=== PATIENT | male | born 1990 | race Caucasian/White ===

== ENCOUNTER 2016-12-25 21:08 | Emergency (ER) | payer SELFPAY ==
[~2016-12-25] VITALS: Ht 175.3 cm; Wt 80.2 kg
[~2016-12-25 21:08] MED LIST: NO ROUTINE MEDS
--- OUTSIDE RECORDS SUMMARY | 2016-12-25 21:12 | XMS REPORT | Continuity of Care Document ---
Author Author [facility] Organization [facility] Address Unknown Phone Unavailable Allergies Active Description Code Type Severity Reaction Onset Reported/Identified Relationship to Patient Clinical Status Yes No Known Medication Allergies NKMA N/A N/A 08/28/2014 Medications Problems Procedures Results Test Result Range Comprehensive Metabolic Panel (CMP) - 07/05/16 11:25 Albumin 4.5 g/dL 3.5-5.0 Alkaline Phosphatase 75 U/L 40-150 ALT (SGPT) 28 U/L 0-55 Anion Gap 9 NA 3-20 AST (SGOT) 24 U/L 5-34 Bilirubin Total 0.4 mg/dL 0.2-1.2 BUN 6 mg/dL 9-21 Calcium 9.8 mg/dL 8.9-10.5 Chloride 104 mEq/L 99-111 CO2 26 mEq/L 23-31 Creatinine 0.85 mg/dL 0.72-1.25 Globulin 2.2 g/dL 1.8-4.0 Glucose 135 mg/dL 70-99 Potassium 4.3 mEq/L 3.5-5.2 Protein 6.7 g/dL 6.1-7.7 Sodium 139 mEq/L 135-144 eGFR - 07/05/16 11:25 eGFR >60 mL/min >60 CBC With Platelet and Differential - 10/17/16 11:37 Absolute Basophils 0.07 10*3/uL 0.00- 0.20 Absolute Eosinophils 0.14 10*3/uL 0.00- 0.50 Absolute Lymphocytes 2.66 10*3/uL 0.80- 3.30 Absolute Monocytes 0.62 10*3/uL 0.30- 1.00 Absolute Neutrophils 5.35 10*3/uL 1.90- 7.00 Basophils 1 % 0-2 Eosinophils 2 % 0-4 HCT 43.0 % 42.0-52.0 HGB 14.6 g/dL 14.0-18.0 Immature Granulocytes 0.1 % 0.0-1.0 Lymphocytes 30 % 20-46 MCH 30.4 pg 27.0-32.0 MCHC 34.0 g/dL 32.0-36.0 MCV 89.4 fL 82.0-99.0 Monocytes 7 % 4-11 MPV 10.1 fL 8.8-14.8 Neutrophils 60 % 51-75 Platelet Count 398 K/uL 150-400 RBC 4.81 10*6/uL 4.60-6.20 RDW 12.4 % 11.5-14.5 WBC 8.8 K/uL 4.8-10.8 Comprehensive Metabolic Panel (CMP) - 10/17/16 11:37 Albumin 4.6 g/dL 3.5-5.0 Alkaline Phosphatase 74 U/L 40-150 ALT (SGPT) 29 U/L 0-55 Anion Gap 10 NA 3-20 AST (SGOT) 25 U/L 5-34 Bilirubin Total 0.4 mg/dL 0.2-1.2 BUN 4 mg/dL 9-21 Calcium 10.2 mg/dL 8.9-10.5 Chloride 108 mEq/L 99-111 CO2 28 mEq/L 23-31 Creatinine 0.79 mg/dL 0.72-1.25 Globulin 2.3 g/dL 1.8-4.0 Glucose 92 mg/dL 70-99 Potassium 4.0 mEq/L 3.5-5.2 Protein 6.9 g/dL 6.1-7.7 Sodium 146 mEq/L 135-144 eGFR - 10/17/16 11:37 eGFR >60 mL/min >60 TSH with Reflex Free T4 - 10/17/16 11:37 TSH with Reflex Free T4 1.12 uIU/mL 0.35- 4.94 Encounters ACCT No. Visit Date/Time Discharge Status Pt. Type Provider Facility Loc./Unit Complaint [id number] 10/24/2016 15:00:00 2016 23:59:00 DIS Outpatient Argelia Shipley [facility] PT NO BETTER FROM -24 VISIT [id number] 10/17/2016 10:54:00 2016 23:59:00 DIS Outpatient Marcio Diaz [facility] DIARRHEA [id number] 07/05/2016 10:53:00 2015 23:59:00 DIS Outpatient Marcio Diaz [facility] FM TCPA, 2 wk med [id number] 12/21/2015 10:31:00 2015 23:59:00 DIS Outpatient Marcio Diaz [facility] FM BACK PAIN OTHER STUFF NORCO [id number] 07/26/2015 14:30:00 2014 23:59:00 DIS Outpatient Marcio Diaz [facility] FM personal matter [id number] 08/28/2014 14:18:00 2013 23:59:00 DIS Outpatient Marcio Diaz [facility] FM HURT BACK/NOT WORK RELATED/INJ HAPPENED AT HOME
--- OUTSIDE RECORDS SUMMARY | 2016-12-25 21:12 | XMS REPORT | Continuity of Care Document ---
Author Author [facility] Organization [facility] Address Unknown Phone Unavailable Support Name Relationship Address Phone REBECCA DEJESUS MD Caregiver [address] [place] [phone] LINNETTE NICHOLE MD Caregiver [address] [place] [address] LALITHA BELLAMY Next Of Kin Unknown [phone] Insurance Providers Payer Name Policy Number Subscriber Name Relationship Self Pay Juan David Bellamy 17 Self Problems Medical Problems Problem Onset Date Status Gastritis Unknown Active Medications Medication Dose Route Sig Days/Qty Instructions Order Date Discontinued Date Status Amox Tr/Potassium Clavulanate 11/26/08 04/13/12 Discontinued [Lortab] 11/26/08 04/13/12 Discontinued Amoxicillin Trihydrate 500 Mg PO THREE TIMES A DAY 04/13/12 Discontinued Lorazepam 0.5 Mg PO Q4H 12/09/14 Active Famotidine 1 Tab PO TWICE A DAY PRN GASTROINTESTINAL UPSET 10 Days Active Omeprazole Magnesium 1 Tab PO BEDTIME 10 Days 12/09/14 Active Social History Social History Problem Response Recorded Date/Time Hx Alcohol Use N DENIES ANY NOW, STATES HAS IN THE PAST 12/09/2014 6:54am Tobacco Usage smoke 12/09/2014 6:56am Query Response Start Date Stop Date Smoking Status Current every day smoker Hospital Discharge Instructions No hospital discharge instructions. Plan of Care No plan of care. Functional Status Query Response Date Recorded Physical Hygiene Self December 09, 2014 6:54am Disabilities None December 09, 2014 6:54am Devices Used None December 09, 2014 6:54am Dressing Self December 09, 2014 6:54am Ambulation Self December 09, 2014 6:54am Diet Self December 09, 2014 6:54am Mental Status Alert Oriented December 09, 2014 8:45am Disabilities None December 09, 2014 6:54am Devices Used None December 09, 2014 6:54am Physical Hygiene Self December 09, 2014 6:54am Dressing Self December 09, 2014 6:54am Ambulation Self December 09, 2014 6:54am Diet Self December 09, 2014 6:54am Allergies, Adverse Reactions, Alerts Allergen Type Severity Reaction Status Last Updated No Known Drug Intolerances Allergy Unknown Active 12/09/14 Immunizations No immunization records. Vital Signs Acute Vital Signs Vital Response Date/Time Temperature (Fahrenheit) 97.4 deg F (96.8 - 99.1) Temperature (Calculated Celsius) 36.32833 degrees C (36.0 - 37.3) Pulse Rate (adult) 74 bpm (60 - 100) Respiratory Rate 18 breaths/min (10 - 20) O2 Sat by Pulse Oximetry 96 % (90 - 100) Blood Pressure 121/86 mm Hg Height 5 ft 11 in Weight 205 lb Body Mass Index 28.0 kg/m^2 Results Test Source Date Result Interp. Ref. Range Comments Alanine Aminotransferase (ALT/SGPT) December 09, 2014 7:11am 54 U/L N 21- 72 Albumin December 09, 2014 7:11am 4.5 G/DL N 3.5-5.0 Albumin/Globulin Ratio December 09, 2014 7:11am 1.5 RATIO N 1.1-2.2 Alcohol, Quantitative May 01, 2012 11:17pm 82 MG/DL - Alkaline Phosphatase December 09, 2014 7:11am 81 U/L N 38-126 Amylase Level May 01, 2012 11:17pm 69 U/L N 30-110 Anion Gap December 09, 2014 7:11am 15 MEQ/L N 5-15 Aspartate Amino Transf (AST/SGOT) December 09, 2014 7:11am 34 U/L N 17-59 BUN/Creatinine Ratio December 09, 2014 7:11am 9 RATIO N 6-26 Band Neutrophils # November 18, 2008 4:25am 0.2 T/MM3 - Band Neutrophils % November 18, 2008 4:25am 1.0 % N 0-6 Basophils # (Auto) December 09, 2014 7:11am 0.1 T/MM3 N 0-0.2 Basophils # (Manual) November 18, 2008 4:25am 0.0 T/MM3 N 0-0.2 Basophils % (Manual) November 18, 2008 4:25am 0.0 % N 0-2 Basophils (%) (Auto) December 09, 2014 7:11am 1.8 % N 0-2 Blood Urea Nitrogen December 09, 2014 7:11am 7.0 MG/DL L 9-20 Calcium Level December 09, 2014 7:11am 9.8 MG/DL N 8.4-10.2 Calculated Osmolality December 09, 2014 7:11am 277 MOSM/KG N 261-280 Carbon Dioxide Level December 09, 2014 7:11am 27 MEQ/L N 22-30 Chemistry Specimen Hemolysis December 09, 2014 7:11am < 15 0-25 0-25: No Hemolysis.26-70: Slight Hemolysis - can falsely elevate K and Urine Protein. 71-285: Moderate Hemolysis - can falsely elevate K, Troponin I, CA 19-9, PTH, CSF GLucose, and Urine Protein, and can falsely decrease Phenytoin. 286-999: Gross Hemolysis - can falsely elevate K, Troponin I, CA 19-9, PTH, CSF Glucose, and Urine Protine, and can falsely decrease Phenytoin. Recommend specimen recollection. Chloride Level December 09, 2014 7:11am 103 MEQ/L N 98-107 Conjugated Bilirubin May 01, 2012 11:17pm 0.00 MG/DL N 0.00-0.30 Creatinine December 09, 2014 7:11am 0.8 MG/DL N 0.8-1.5 Differential Total Cells Counted November 17, 2008 5:35pm 100 % - Eosinophils # (Auto) December 09, 2014 7:11am 0.4 T/MM3 N 0-0.5 Eosinophils # (Manual) November 18, 2008 4:25am 0.0 T/MM3 N 0-0.5 Eosinophils % (Manual) November 18, 2008 4:25am 0.0 % N 0-4 Eosinophils (%) (Auto) December 09, 2014 7:11am 6.6 % H 0-4 Globulin December 09, 2014 7:11am 3.1 G/DL N 2.4-3.6 Glomerular Filtration Rate Calc December 09, 2014 7:11am 118 - Glucose Level December 09, 2014 7:11am 107 MG/DL N 75-110 Hematocrit December 09, 2014 7:11am 43.6 % N 41-53 Hemoglobin December 09, 2014 7:11am 15.3 GM/DL N 13.5-17.5 Icterus Index December 09, 2014 7:11am < 2 0-7 Immature Granulocyte # (Auto) December 09, 2014 7:11am 0.01 T/MM3 N 0.00- 0.03 Immature Granulocyte % (Auto) December 09, 2014 7:11am 0.2 % N 0.0-0.5 Lab Scanned Report May 06, 2012 3:12pm [facility] [id number] - Lipase December 09, 2014 7:11am 43 U/L N 23-300 Lymphocytes # (Auto) December 09, 2014 7:11am 1.9 T/MM3 N 1-4.8 Lymphocytes # (Manual) November 18, 2008 4:25am 2.1 T/MM3 N 1-4.8 Lymphocytes % (Manual) November 18, 2008 4:25am 13.0 % L 23-45 Lymphocytes (%) (Auto) December 09, 2014 7:11am 27.9 % N 23-45 Mean Corpuscular Hemoglobin December 09, 2014 7:11am 29.7 UUG N 26-34 Mean Corpuscular Hemoglobin Concent December 09, 2014 7:11am 35.1 GM/DL N 31-37 Mean Corpuscular Volume December 09, 2014 7:11am 84.5 UM3 N 80-100 Mean Platelet Volume December 09, 2014 7:11am 9.9 UM3 N 9.4-12.4 Metamyelocytes # November 18, 2008 4:25am 0.0 T/MM3 - Metamyelocytes % November 18, 2008 4:25am 0.0 % N 0-0 Monocytes # (Auto) December 09, 2014 7:11am 0.4 T/MM3 N 0-0.8 Monocytes # (Manual) November 18, 2008 4:25am 0.5 T/MM3 N 0-0.8 Monocytes % (Manual) November 18, 2008 4:25am 3.0 % N 0-9.0 Monocytes (%) (Auto) December 09, 2014 7:11am 5.9 % N 0-9.0 Neutrophils # (Auto) December 09, 2014 7:11am 3.8 T/MM3 N 1.8-7.7 Neutrophils # (Manual) November 18, 2008 4:25am 13.3 T/MM3 H 1.8-7.7 Neutrophils % (Manual) November 18, 2008 4:25am 83.0 % H 33-66 Neutrophils (%) (Auto) December 09, 2014 7:11am 57.6 % N 33-66 Platelet Count December 09, 2014 7:11am 322 T/MM3 N 130-400 Potassium Level December 09, 2014 7:11am 4.0 MEQ/L N 3.6-5 RDW Standard Deviation December 09, 2014 7:11am 37.0 FL N 36.9-50.2 Red Blood Count December 09, 2014 7:11am 5.16 M/MM3 N 4.50-5.90 Salicylates Level May 01, 2012 11:17pm < 1.0 MG/DL L 2-20 Sodium Level December 09, 2014 7:11am 145 MEQ/L H 134-144 Total Bilirubin December 09, 2014 7:11am 0.40 MG/DL N 0.20-1.30 Total Protein December 09, 2014 7:11am 7.6 G/DL N 6.3-8.2 Turbidity December 09, 2014 7:11am < 20 0-20 Unconjugated Bilirubin May 01, 2012 11:17pm 0.20 MG/DL N 0.00-1.10 Urinalysis Comment December 09, 2014 7:08am Microscopic not ind. - Has specimen been collected/obtained? Y Urine Acetaminophen Screen May 01, 2012 11:45pm Test not performed - Urine Amorphous Phosphates November 17, 2008 5:39pm Many - Has specimen been collected/obtained? Y Urine Amphetamines Screen May 01, 2012 11:45pm Negative NG/ML - Urine Barbiturates Screen May 01, 2012 11:45pm Negative NG/ML - Urine Benzodiazepines Screen May 01, 2012 11:45pm Negative NG/ML - Urine Bilirubin December 09, 2014 7:08am Negative - Has specimen been collected/obtained? Y Urine Blood December 09, 2014 7:08am Negative - Has specimen been collected/obtained? Y Urine Cannabinoids Screen May 01, 2012 11:45pm Negative NG/ML - Urine Cocaine Screen May 01, 2012 11:45pm Negative NG/ML - Urine Collection Type December 09, 2014 7:08am Voided-not cc-midstr - Has specimen been collected/obtained? Y Urine Color December 09, 2014 7:08am Yellow - Has specimen been collected/obtained? Y Urine Culture Indicated November 17, 2008 5:39pm Cult not set up - Has specimen been collected/obtained? Y Urine Drug Screen Confirmation May 02, 2012 12:09am Sent out - Urine Glucose (UA) December 09, 2014 7:08am Negative - Has specimen been collected/obtained? Y Urine Ketones December 09, 2014 7:08am Negative - Has specimen been collected/obtained? Y Urine Leukocyte Esterase December 09, 2014 7:08am Negative - Has specimen been collected/obtained? Y Urine Methadone Screen May 01, 2012 11:45pm Negative NG/ML - Urine Methamphetamines Screen May 01, 2012 11:45pm Test not performed - Urine Microscopic Not Indicated May 01, 2012 11:45pm Not indicated - Has specimen been collected/obtained? Y Urine Nitrite December 09, 2014 7:08am Negative - Has specimen been collected/obtained? Y Urine Opiates Screen May 01, 2012 11:45pm Positive NG/ML - Urine Phencyclidine Screen May 01, 2012 11:45pm Test not performed - Urine Protein December 09, 2014 7:08am Negative - Has specimen been collected/obtained? Y Urine RBC November 17, 2008 5:39pm None seen /HPF - Has specimen been collected/obtained? Y Urine Specific S[place]ent December 09, 2014 7:08am 1.025 - Has specimen been collected/obtained? Y Urine Squamous Epithelial Cells November 17, 2008 5:39pm None seen - Has specimen been collected/obtained? Y Urine Tricyclic Antidepressants May 01, 2012 11:45pm Negative NG/ML - Urine Turbidity December 09, 2014 7:08am Clear - Has specimen been collected/obtained? Y Urine Urobilinogen December 09, 2014 7:08am 0.2 EU/DL - Has specimen been collected/obtained? Y Urine WBC November 17, 2008 5:39pm None seen /HPF - Has specimen been collected/obtained? Y Urine pH December 09, 2014 7:08am 5.5 - Has specimen been collected/ obtained? Y White Blood Count December 09, 2014 7:11am 6.6 T/MM3 N 4.5-11.0 Name: JUAN DAVID BELLAMY Unit #: [id number] : 1990 Sex: M Loc / Svc: ED DOS: 12/09/14 Signed Report #: [id number] DIAGNOSTIC IMAGING REPORT TYPE OF EXAM: US GALLBLADDER Dictated By: GARIMA GREENE MD Indication: ITS.REASON: right upper quadrant abdominal pain possible Pereira's rule out ch US GALLBLADDER: Comparison: None Technique: Grayscale and color Doppler sonographic imaging of the right upper quadrant of the abdomen was performed. Findings: Hepatic parenchyma is homogeneous without evidence for focal mass. The gallbladder is normal. There is no wall thickening, pericholecystic fluid, sonographic Pereira's sign or cholelithiasis. Both the intra and extrahepatic biliary system are of normal caliber with the common duct measuring 3 mm in dimension. Visualized portions of the head and body of the pancreas are unremarkable. The right kidney is present without collecting system dilatation. The right kidney measures 10.2 cm in length. Impression: Normal right upper quadrant sonogram. . Procedures No known history of procedures. Encounters Encounter Location Date/Time Departed Emergency Room [facility] 12/09/14 6:36am Recent Diagnosis
--- OUTSIDE RECORDS SUMMARY | 2016-12-25 21:13 | XMS REPORT | Referral Summary ---
Author Author [facility] Organization [facility] Address Unknown Phone Unavailable Care Team Providers Care Car Repairer Pullman Name Role Phone Arthur Diaz Primary Care Physician [phone] Encounter VC Date(s): 10/17/16 - 10/17/16 [facility] [address] [place] [id number] Discharge Diagnosis: Chronic back pain Discharge Diagnosis: Anxiety Discharge Diagnosis: Other chronic pain Discharge Diagnosis: Generalized anxiety disorder Discharge Disposition: 01-Home or Self Care Attending Physician: Marcio Diaz MD Admitting Physician: Marcio Diaz MD Vital Signs Most recent to 1 oldest [Reference Range]: Temperature Tympanic 36.6 degC [36.6-38.1 degC] (10/17/16 11:00 AM) Peripheral Pulse 124 bpm Rate [60-100 bpm] *HI* (10/17/16 11:00 AM) Respiratory Rate 28 br/min [14-20 br/min] *HI* (10/17/16 11:00 AM) Blood Pressure 124/90 mmHg [90-140/60-90 mmHg] (10/17/16 11:00 AM) Problem List Condition Effective Dates Status Health Status Informant Unspec Gastritis W/O Active Hemorrhage(Confirmed )1 Gastro-Esoph Active Reflux(Confirmed)2 rectal Active bleeding(Confirmed)3 1See Conversion Document. 2See Conversion Document. 3See Conversion Document. Allergies, Adverse Reactions, Alerts No Known Medication Allergies Medications LORazepam 1 mg oral tablet 1 mg 1 tabs, Oral, Bedtime (once a day), # 30 tabs, 0 Refill(s) Start Date: 10/17/16 Status: Ordered Inlet 5 mg-325 mg oral tablet 2 tabs, Oral, TID, as needed for pain, may fill 10/17, # 84 tabs, 0 Refill(s) Start Date: 10/17/16 Status: Ordered Results Hematology Most recent to 1 oldest [Reference Range]: WBC [4.8-10.8 8.8 10*3/uL 10*3/uL] (10/17/16 11:37 AM) RBC [4.60-6.20] 4.81 (10/17/16 11:37 AM) Hgb [14.0-18.0 14.6 gm/dL gm/dL] (10/17/16 11:37 AM) Hct [42.0-52.0 %] 43.0 % (10/17/16 11:37 AM) MCV [82.0-99.0 fL] 89.4 fL (10/17/16 11:37 AM) MCH [27.0-32.0 pg] 30.4 pg (10/17/16 11:37 AM) MCHC [32.0-36.0 34.0 gm/dL gm/dL] (10/17/16 11:37 AM) RDW [11.5-14.5 %] 12.4 % (10/17/16 11:37 AM) Platelet [150-400 398 10*3/uL 10*3/uL] (10/17/16 11:37 AM) MPV [8.8-14.8 fL] 10.1 fL (10/17/16 11:37 AM) Immature 0.1 % Granulocytes (10/17/16 11:37 AM) [0.0-1.0 %] Neutrophils [51-75 60 % %] (10/17/16 11:37 AM) Lymphocytes [20-46 30 % %] (10/17/16 11:37 AM) Monocytes [4-11 %] 7 % (10/17/16 11:37 AM) Eosinophils [0-4 %] 2 % (10/17/16 11:37 AM) Basophils [0-2 %] 1 % (10/17/16 11:37 AM) Neutro Absolute 5.35 [1.90-7.00] (10/17/16 11:37 AM) Lymph Absolute 2.66 [0.80-3.30] (10/17/16 11:37 AM) Ida Absolute 0.62 [0.30-1.00] (10/17/16 11:37 AM) Eos Absolute 0.14 [0.00-0.50] (10/17/16 11:37 AM) Baso Absolute 0.07 [0.00-0.20] (10/17/16 11:37 AM) Chemistry Most recent to 1 oldest [Reference Range]: Sodium Lvl [135-144 146 mEq/L mEq/L] *HI* (10/17/16 11:37 AM) Potassium Lvl 4.0 mEq/L [3.5-5.2 mEq/L] (10/17/16 11:37 AM) Chloride [99-111 108 mEq/L mEq/L] (10/17/16 11:37 AM) CO2 [23-31 mEq/L] 28 mEq/L (10/17/16 11:37 AM) AGAP [3-20] 10 (10/17/16 11:37 AM) BUN [9-21 mg/dL] 4 mg/dL *LOW* (10/17/16 11:37 AM) Glucose Lvl [70-99 92 mg/dL mg/dL] (10/17/16 11:37 AM) Creatinine Lvl 0.79 mg/dL [0.72-1.25 mg/dL] (10/17/16 11:37 AM) eGFR [>60 mL/min] >60 mL/min 1 (10/17/16 11:37 AM) Calcium Lvl 10.2 mg/dL [8.9-10.5 mg/dL] (10/17/16 11:37 AM) Albumin Lvl [3.5-5.0 4.6 gm/dL gm/dL] (10/17/16 11:37 AM) Total Protein 6.9 gm/dL [6.1-7.7 gm/dL] (10/17/16 11:37 AM) Globulin [1.8-4.0 2.3 gm/dL gm/dL] (10/17/16 11:37 AM) ALT [0-55 U/L] 29 U/L (10/17/16 11:37 AM) AST [5-34 U/L] 25 U/L (10/17/16 11:37 AM) Alk Phos [40-150 74 U/L U/L] (10/17/16 11:37 AM) Bili Total [0.2-1.2 0.4 mg/dL mg/dL] (10/17/16 11:37 AM) TSH with Reflex Free 1.12 T4 [0.35-4.94] (10/17/16 11:37 AM) 1Result Comment: Multiply eGFR results by 1.21 for race. Immunizations Given and Recorded Vaccine Date Status Refusal Reason tetanus/diphth/pertuss (Tdap) adult/adol 09/24/06 Recorded Procedures Procedure Date Related Diagnosis Body Site Collection of venous blood by venipuncture 10/17/16 Appendectomy1 11/17/08 1See Conversion Document. Social History Social History Type Response Smoking Status Current every day smoker; Tobacco use per day: Pack Assessment and Plan Extracted from: Title: Office Visit Note Author: Marcio Diaz MD Date: 10/17/16 Assessment/Plan 1.Chronic back pain, I told him that I don't think his symptoms are related to withdrawal since he hasn't really changed his dosage. I've asked him to returnto taking just 6 hydrocodone dailyand I did go ahead and refill it today even though its early after our discussion. We will not refill early again. Other chronic pain Ordered: CBC w/ Differential Comprehensive Metabolic Panel Office Visit Level 3 Est 03877 2.Anxiety, I think his symptoms are more consistent with some generalized anxiety. I' ve recommendedlorazepam 1 mg at at bedtime for the next couple weeks and then tapering after that. If his symptoms persist we may need to add an SSRI. He'll keep me posted over the next couple weeks of asked him to give me a phone call and let me know how is doing. Generalized anxiety disorder Ordered: CBC w/ Differential Comprehensive Metabolic Panel Office Visit Level 3 Est 64251 TSH with Reflex Free T4
--- OUTSIDE RECORDS SUMMARY | 2016-12-25 21:13 | XMS REPORT | Continuity of Care Document ---
Author Author [facility] Organization [facility] Address Unknown Phone Unavailable Support Name Relationship Address Phone ABDIEL MILES MD Caregiver [address] [place] [address] Unavailable REBECCA DEJESUS MD Caregiver [address] [place] [address] Unavailable EVITA LALITHA Next Of Kin Unknown [phone] Insurance Providers Guarantor Banning,Juan David Address [address] [place] [address] Email [email or web address] P[employer] Other Policy Number [id number] Subscriber's Name Juan David Bellamy Relationship 18 Self Group Number [id number] Chief Complaint and Reason for Visit Chief Complaint Fall Reason for Visit Contusion of rib on left side Problems Active Problems Medical Problem Onset Date Status Contusion of rib on left side Unknown Acute Gastritis Unknown Acute Medications Current Home Medications Medication Dose Units Route Directions Days Qty Instructions Start Date No Routine Meds 07/13/16 Past Home Medications Medication Directions Ordered Status Amox Tr/Potassium Clavulanate (Augmentin) 400 Mg Tablet, 11/26/08 Discontinued Amoxicillin Trihydrate (Amoxicillin) 500 Mg Capsule, 500 Mg Oral Three Times A Day 04/13/12 Discontinued Lortab , 11/26/08 Discontinued Social History Social History Problem Response Recorded Date/Time Onset Date Status Chewing Tobacco Status No 07/13/2016 7:15pm Not Applicable Not Applicable Hx Substance Use No 07/13/2016 7:15pm Not Applicable Not Applicable Hx Alcohol Use N DENIES ANY NOW, STATES HAS IN THE PAST 07/13/2016 7:15pm Not Applicable Not Applicable Tobacco Usage smoke 12/09/2014 6:56am Not Applicable Not Applicable Query Response Start Date Stop Date Smoking Status Current every day smoker Hospital Discharge Instructions No hospital discharge instructions. Plan of Care Discharge Date 07/13/16 8:25pm Disposition 01 DISCHARGED HOME, SELF-CARE Condition at Discharge Stable Instructions/Education Provided DI for Rib Contusion Prescriptions See Medication Section Referrals REBECCA DEJESUS MD Address: [address] [place] [address] [phone] Additional Instructions/Education Take the [place] as needed for pain. I do recommend that you use Ibuprofen or Aleve as well. Take deep breaths often to prevent cough and pneumonia from developing. Follow up with your primary care provider if you are not improving at all. Care Plan and Goals Physician Care Plan Problem:Left rib contusion Goal: Follow up with primary care provider Instructions: Take medications and follow care plan as discussed/written Functional Status No functional status results. Allergies, Adverse Reactions, Alerts Allergen Type Severity Reaction Status Last Updated No Known Drug Intolerances Allergy Unknown Active 07/13/16 Immunizations Query Response on File Recorded Date/Time Tdap Vaccine Hx UTD PER PT 07/13/16 9:14pm Vital Signs Acute Vital Signs Vital Response Date/Time Temperature (Fahrenheit) 98.3 deg F (96.8 - 99.1) 07/13/2016 7:11pm Temperature (Calculated Celsius) 36.26268 degrees C (36.0 - 37.3) 07/13/2016 7:11pm Pulse Rate (adult) 71 bpm (60 - 100) 07/13/2016 7:11pm Respiratory Rate 19 breaths/min (10 - 20) 07/13/2016 7:11pm O2 Sat by Pulse Oximetry 100 % (90 - 100) 07/13/2016 7:11pm Blood Pressure 143/89 mm Hg 07/13/2016 7:11pm Height (Feet) 5 feet 07/13/2016 7:11pm Height (Inches) 9.00 inches 07/13/2016 7:11pm Weight (Kilograms) 81.800 kg 07/13/2016 7:11pm Body Mass Index (BMI) 26.0 07/13/2016 7:11pm Results No known relevant diagnostic tests, laboratory data and/or discharge summary. Procedures No known history of procedures. Encounters Encounter Location Arrival/Admit Date Discharge/Depart Date Attending Provider Departed Emergency Room [facility] 07/13/16 6:59pm 07/13/16 8: 25pm ABDIEL MILES MD Recent Diagnosis
--- OUTSIDE RECORDS SUMMARY | 2016-12-25 21:13 | XMS REPORT | Referral Summary ---
Author Author [facility] Organization [facility] Address Unknown Phone Unavailable Care Team Providers Care Neurology Technician Name Role Phone Arthur Diaz Primary Care Physician [phone] Encounter VC Date(s): 07/05/16 - 07/05/16 [facility] [address] [place] [id number] Discharge Diagnosis: Chronic midline low back pain Discharge Disposition: 01-Home or Self Care Attending Physician: Marcio Diaz MD Admitting Physician: Marcio Diaz MD Vital Signs Most recent to 1 oldest [Reference Range]: Temperature Tympanic 36.1 degC [36.6-38.1 degC] *LOW* (07/05/16 11:07 AM) Peripheral Pulse 92 bpm Rate [60-100 bpm] (07/05/16 11:07 AM) Respiratory Rate 16 br/min [14-20 br/min] (07/05/16 11:07 AM) Blood Pressure 114/78 mmHg [90-140/60-90 mmHg] (07/05/16 11:07 AM) Problem List Condition Effective Dates Status Health Status Informant Unspec Gastritis W/O Active Hemorrhage(Confirmed )1 Gastro-Esoph Active Reflux(Confirmed)2 rectal Active bleeding(Confirmed)3 1See Conversion Document. 2See Conversion Document. 3See Conversion Document. Allergies, Adverse Reactions, Alerts No Known Medication Allergies Medications [place] 5 mg-325 mg oral tablet 2 tabs, Oral, TID, as needed for pain, # 84 tabs, 0 Refill(s) Start Date: 07/05/16 Status: Ordered Results Chemistry Most recent to 1 oldest [Reference Range]: Sodium Lvl [135-144 139 mEq/L mEq/L] (07/05/16 11:25 AM) Potassium Lvl 4.3 mEq/L [3.5-5.2 mEq/L] (07/05/1625 AM) Chloride [99-111 104 mEq/L mEq/L] (07/05/16 AM) CO2 [23-31 mEq/L] 26 mEq/L (07/05/1625 AM) AGAP [3-20] 9 (07/05/1625 AM) BUN [9-21 mg/dL] 6 mg/dL *LOW* (07/05/16 AM) Glucose Lvl [70-99 135 mg/dL mg/dL] *HI* (07/05/16 AM) Creatinine Lvl 0.85 mg/dL [0.72-1.25 mg/dL] (07/05/16 AM) eGFR [>60 mL/min] >60 mL/min 1 (07/05/16 AM) Calcium Lvl 9.8 mg/dL [8.9-10.5 mg/dL] (07/05/16 AM) Albumin Lvl [3.5-5.0 4.5 gm/dL gm/dL] (07/05/16 AM) Total Protein 6.7 gm/dL [6.1-7.7 gm/dL] (07/05/16 AM) Globulin [1.8-4.0 2.2 gm/dL gm/dL] (07/05/1625 AM) ALT [0-55 U/L] 28 U/L (07/05/1625 AM) AST [5-34 U/L] 24 U/L (07/05/1625 AM) Alk Phos [40-150 75 U/L U/L] (07/05/16:25 AM) Bili Total [0.2-1.2 0.4 mg/dL mg/dL] (07/05/1625 AM) 1Result Comment: Multiply eGFR results by 1.21 for race. Immunizations Vaccine Date Refusal Reason tetanus/diphth/pertuss (Tdap) adult/adol 09/24/06 Procedures Procedure Date Related Diagnosis Body Site Collection of venous blood by venipuncture 07/05/16 Appendectomy1 11/17/08 1See Conversion Document. Social History Social History Type Response Smoking Status Current every day smoker; Tobacco use per day: Pack Assessment and Plan Extracted from: Title: Office Visit Note Author: Marcio Diaz MD Date: 07/05/16 Assessment/Plan 1.Chronic midline low back pain Continue current treatment plan without change. I've recommended a metabolic panel to check liver and kidney function. We talked aboutlikelyneeding to start random drug testingin the next year. Continue current treatment plan without change. Ordered: Comprehensive Metabolic Panel Office Visit Level 3 Est 01388
--- OUTSIDE RECORDS SUMMARY | 2016-12-25 21:13 | XMS REPORT | Referral Summary ---
Author Author [facility] Organization [facility] Address Unknown Phone Unavailable Care Team Providers Care Core Paster Name Role Phone Arthur Diaz Primary Care Physician [phone] Encounter Date(s): 10/24/16 - 10/24/16 [facility], [address] [place] [id number] Discharge Diagnosis: Generalized anxiety disorder Discharge Diagnosis: Chronic back pain Discharge Disposition: 01-Home or Self Care Attending Physician: Argelia Shipley APRN Admitting Physician: Argelia Shipley APRN Vital Signs Most recent to 1 oldest [Reference Range]: Temperature Tympanic 36.6 degC [36.6-38.1 degC] (10/24/16 1:31 PM) Peripheral Pulse 112 bpm Rate [60-100 bpm] *HI* (10/24/16 1:31 PM) Blood Pressure 148/100 mmHg [90-140/60-90 mmHg] *HI* (10/24/16 1:31 PM) Problem List Condition Effective Dates Status Health Status Informant Unspec Gastritis W/O Active Hemorrhage(Confirmed )1 Gastro-Esoph Active Reflux(Confirmed)2 rectal Active bleeding(Confirmed)3 1See Conversion Document. 2See Conversion Document. 3See Conversion Document. Allergies, Adverse Reactions, Alerts No Known Medication Allergies Medications LORazepam 1 mg oral tablet 1 mg 1 tabs, Oral, Bedtime (once a day), # 30 tabs, 0 Refill(s) Start Date: 10/17/16 Status: Ordered [place] 5 mg-325 mg oral tablet 2 tabs, Oral, TID, as needed for pain, may fill 10/17, # 84 tabs, 0 Refill(s) Start Date: 10/17/16 Status: Ordered Results No data available for this section Immunizations Given and Recorded Vaccine Date Status Refusal Reason tetanus/diphth/pertuss (Tdap) adult/adol 09/24/06 Recorded Procedures Procedure Date Related Diagnosis Body Site Appendectomy1 11/17/08 1See Conversion Document. 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 Diaz had instructedbut then as he wastrying to figure out when his next refill would be she voices he would have to make itstretch. I discussed with him if he was taking 6 per day that thatprescription should last. Voiced that according to Dr. Diaz' last note that I would not refill his medications early or make changes to his currentcare. Discussed referral to pain management for otheroptions that he is not interested. We discussed other ways to decreasepain. The patient wasn't interested 2.Generalized anxiety disorder Discussed adding SSRI. He voices he was on Zoloft and Celexa in the past and did not like them. He is not interested in pursuing that avenue of care. Follow-up in the office as needed or as recommended by Dr. Diaz.
[2016-12-25 21:38] VITALS: Ht 175.3 cm; Wt 80.2 kg
--- NOTE | 2016-12-25 21:55 | NUR ---
PROVIDER SUBHA MARSHALL APRN AT BEDSIDE TO EXAMINE PATIENT.
[2016-12-25] MEDS ORDERED: NAPR500T PO (21:59)
[2016-12-25] MEDS ORDERED: AMOX-351 PO (21:59)
[2016-12-25] MEDS ORDERED: AMOXICILLIN/CLAVULANATE 875 MG/125 MG TABLET PO ONE (22:00)
[2016-12-25] MEDS ORDERED: NAPROXEN 500 MG TABLET PO ONE (22:00)
--- NOTE | 2016-12-25 22:00 | ERPDOC ---
Departure Disposition Decision Date: Dec 25, 2016 Disposition Decision Time: 21:58 (HERMANSHITAL CONKLIN APRN) Disposition: 01 DISCHARGED HOME, SELF-CARE Impression Impression (HERMANRUBINSHITAL Horton APRN) Impression: Primary Impression: Pain, dental Severity: Moderate (SHITAL MARSHALL APRN) Condition: Stable Seen By: Mid-level only (SHITAL MARSHALL APRN) Referrals: REBECCA DEJESUS MD (Family) Patient Instructions: Dental Caries (ED) Problems/Meds/Labs Reviewed?: Yes Medications reviewed and manag: Yes (SHITAL MARSHALL APRN) Additional Instructions: Take the Naproxen as prescribed and take the Augmentin as prescribed for pain as well. Follow up this week or next with Dr Winters for evaluation of your teeth. Follow up care ordered?: Yes Mental Status: Alert (SHITAL MARSHALL APRN) Scripts Naproxen (Naprosyn) 500 Mg Tablet 1 TAB PO BID, #20 TAB 0 Refills Prov: SHITAL MARSHALL APRN 12/25/16 Amoxicillin/Potassium Clav (Augmentin 875-125 Tablet) 1 Each Tablet 1 TAB PO BID, #20 TAB 0 Refills TAKE WITH MEALS Prov: SHITAL MARSHALL APRN 12/25/16 HPI General Chief Complaint: Toothache Stated Complaint: TOOTH PAIN Time Seen by Provider: 21:51 Source: patient Exam Limitations: no limitations (SHITAL MARSHALL APRN) Time Seen by Provider: 21:51 (JANUARY,JANINE M DO) HPI Dental Initial Comments He has had some left upper dental pain and irritation since yesterday evening. Has gotten much worse today. He feels like it travels up to his christian now and also to his left ear. Has had trouble with his teeth in the past. Denies any fever or vomiting or nasal congestion. Does not want anything for pain aside from some Ibuprofen. Had taken some Amoxicillin tonight at home. He does see Dr Winters but has not scheduled an appointment with him for follow up yet. Occurred At: home Onset: Gradual Duration: 12-24 hrs Severity: moderate Location: L upper Associated Symptoms: cheek swelling, sinus pain, DENIES: cough, dental trauma, diarrhea, drooling, dyspnea, facial swelling, fever, fractured tooth, gum laceration, gum swelling, headache, high pitched cry/voice, hoarseness, impacted tooth, loose tooth, nausea, retained foreign body, rhinorrhea, sinus drainage, trouble chewing, trouble swallowing, vomiting (NOLD,SHITAL N DEVELOPMENT ANALYST) Allergies: Coded Allergies: NKDA (Verified Allergy, Unknown, 12/25/16) Past History Past Medical History ENMT: dental problems (NOLD,SHITAL N DEVELOPMENT ANALYST) Surgical History General: appendix (NOLD,SHITAL N DEVELOPMENT ANALYST) Family History Family PMH: FOUND: diabetes (NOLD,SHITAL N DEVELOPMENT ANALYST) Social History Smoking Status: Current every day smoker Substance Use Type: does not use Alcohol Intake: none (NOLD,SHITAL N DEVELOPMENT ANALYST) Review of Systems Constitutional Constitutional: DENIES: chills, dizziness, fatigue, fever, weakness (NOLD, SHITAL N DEVELOPMENT ANALYST) Eyes Vision: DENIES: blurring, double vision (NOLD,SHITAL N DEVELOPMENT ANALYST) ENMT Ears: pain, DENIES: drainage Sinuses: DENIES: congestion, rhinorrhea Mouth/Throat: DENIES: painful swallowing, scratchy throat, sore throat (NOLD, SHITAL N DEVELOPMENT ANALYST) Cardiovascular Cardiac: DENIES: chest pain, orthopnea Rhythm/Rate: DENIES: irregular beat, palpitations (NOLD,SHITAL N DEVELOPMENT ANALYST) Pulmonary Respiratory: DENIES: cough, dyspnea, sputum (NOLD,SHITAL N DEVELOPMENT ANALYST) Integumentary Skin: DENIES: rash (NOLD,SHITAL N DEVELOPMENT ANALYST) Neurological General: DENIES: headache, numbness, tingling, weakness (NOLD,SHITAL N DEVELOPMENT ANALYST) Exam General General Nourishment: well nourished, well developed, appears stated age, no acute distress, adult General Body Habitus: well groomed Vital Signs: RN Vital Signs have been reviewed: Yes Height (Feet): 5 Height (Inches): 9.00 (NOLD,SHITAL N DEVELOPMENT ANALYST) [place] Dental Jaw: NOT FOUND: asymmetry, trismus Gums: moist, pink, swelling (mild swelling on the left upper gums), NOT FOUND: exudate, lesion Teeth: caries, NOT FOUND: fractures, missing Pharynx: NOT FOUND: erythema, exudate, lateral pillar signs, swelling, uvular deviation Tonsils: NOT FOUND: erythema, exudate Neck: NOT FOUND: L anterior adenopathy, L posterior adenopathy, R anterior adenopathy, R posterior adenopathy Skin: NOT FOUND: rash (SHITAL MARSHALL APRN) Neurologic RN Documented GCS Eye Opening: Verbal: Motor: Total: (SHITAL MARSHALL APRN) Differential Diagnoses Considering: Gingival Abscess, Peritonsillar Abscess, Caries, Sinusitis (SHITAL MARSHALL APRN) Progress Results/Orders Orders Procedure Category Date Status Time Naproxen (Naprosyn PHA 12/25/16 Complete 500mg) 22:00 Amoxicillin/Clav. PHA 12/25/16 Complete (Augmentin 875/125) 22:00 () Orders Procedure Category Date Status Time Naproxen (Naprosyn PHA 12/25/16 Complete 500mg) 22:00 Amoxicillin/Clav. PHA 12/25/16 Complete (Augmentin 875/125) 22:00 (SHITAL MARSHALL APRN) Medications Current ED Medications Naproxen (NAPROSYN 500mg) 500 mg O ONCE PO Last administered on 12/25/16 22:20 ; Start 12/25/16 at 22:00; Stop 12/25/16 at 22:01; Status DC Amoxicillin/ Clavulanate Potassium (Augmentin 875/ 125) 875 mg O ONCE PO Last administered on 12/25/16 22:20; Start 12/25/16 at 22:00; Stop 12/25/16 at 22:01; Status DC () Medications Current ED Medications Naproxen (NAPROSYN 500mg) 500 mg O ONCE PO ; Start 12/25/16 at 22:00; Stop at 22:01; Status DC Amoxicillin/ Clavulanate Potassium (Augmentin 875/ 125) 875 mg O ONCE PO ; Start 12/25/16 at 22:00; Stop 12/25/16 at 22:01; Status DC (SCOTTY MARSHALLA N DEVELOPMENT ANALYST) Progress Progress Will have him start some Augmentin today. Will give him some Naproxen as needed for pain. Follow up with his dentist this week or next for reevaluation. (SHITAL MARSHALL APRN) SHITAL MARSHALL APRN Dec 25, 2016 22:00 JANUARY,JANINE Arciniega DO Dec 25, 2016 22:42
[2016-12-25] MEDS ORDERED: AMOX500T2 PO (22:04)
[2016-12-25] MEDS ORDERED: ACET-2321 PO (22:04)
[2016-12-25] MEDS ORDERED: IBUP-1546 PO (22:04)
[2016-12-25 22:21] VITALS: BP 147/97; PULSE 64; RESP 16; TEMP 97.6; O2SAT 100
--- NOTE | 2016-12-25 22:21 | NUR ---
DEPART PT IS DISCHARGED AT THIS TIME, INSTRUCTIONS ARE REVIEWED WITH PT AND UNDERSTANDING IS VOICED. PT LEAVES AMBULATORY.
--- OUTSIDE RECORDS SUMMARY | 2016-12-25 22:28 | XMS REPORT | Continuity of Care Document ---
Author Author [facility] Organization [facility] Address Unknown Phone Unavailable Support Name Relationship Address Phone REBECCA DEJESUS MD Caregiver [address] [phone] LINNETTE NICHOLE MD Caregiver [address] [place] [address] LALITHA BELLAMY Next Of Kin Unknown [phone] Insurance Providers Payer Name Policy Number Subscriber [...] F (96.8 - 99.1) Temperature (Calculated Celsius) [phone] degrees C (36.0 - 37.3) Pulse Rate [...] Report May 06, 2012 3:12pm [facility] [id number] - Lipase December 09, 2014 7:11am 43 [...] Has specimen been collected/obtained? Y Urine Specific [place] December 09, 2014 7:08am 1.025 - Has [...] 4.5-11.0 Name: JUAN DAVID BELLAMY Unit #: [id number] : 1990 Sex: M Loc / Svc: ED DOS: 12/09/14 Signed Report #: [id number] DIAGNOSTIC IMAGING REPORT TYPE OF EXAM: US [...] Encounters Encounter Location Date/Time Departed Emergency Room [facility] 12/09/14 6:36am Recent Diagnosis
--- OUTSIDE RECORDS SUMMARY | 2016-12-25 22:28 | XMS REPORT | Continuity of Care Document ---
Author Author [facility] Organization [facility] Address Unknown Phone Unavailable Allergies Active [...] Status Pt. Type Provider Facility Loc./Unit Complaint [id number] 10/24/2016 15:00:00 2016 23:59:00 DIS Outpatient Argelia Shipley [facility] PT NO BETTER FROM -24 VISIT [id number] 10/17/2016 10:54:00 2016 23:59:00 DIS Outpatient Marcio Diaz [facility] DIARRHEA [id number] 07/05/2016 10:53:00 2015 23:59:00 DIS Outpatient Marcio Diaz [facility] FM TCPA, 2 wk med [id number] 12/21/2015 10:31:00 2015 23:59:00 DIS Outpatient Marcio Diaz [facility] FM BACK PAIN OTHER STUFF NORCO [id number] 07/26/2015 14:30:00 2014 23:59:00 DIS Outpatient Marcio Diaz [facility] FM personal matter [id number] 08/28/2014 14:18:00 2013 23:59:00 DIS Outpatient Marcio Diaz [facility] FM HURT BACK/NOT WORK RELATED/INJ HAPPENED AT HOME
== END 2016-12-25 22:21 | disposition home or self-care (01) ==
LOC: ED 21:08
DX: K02.9 Dental caries, unspecified (principal)